=== PATIENT | female | born 1990 ===

== ENCOUNTER 2016-10-05 19:33 | Emergency (ER) | payer OTHER ==
[2016-10-05 20:31] VITALS: BP 81/59
[2016-10-05] MEDS ORDERED: Ondansetron ODT TAB* 4 MG PO ONE (20:51)
--- NOTE | 2016-10-05 20:54 | UC ---
Abdominal Pain Female HPI - HPI Summary HPI Summary: 26 year old female complaining of feeling nauseated and vomiting which began at 0500 hours. Patient had watery to loose stools this morning which has since resolved, states, "I have vomited so many times, I can't even count." Patient denies abdominal pain. - History of Current Complaint Chief Complaint: UCGI Stated Complaint: VOMITING,DIARRHEA,FEVER Time Seen by Provider: 10/05/16 20:42 Hx Obtained From: Patient Hx Last Menstrual Period: 10/04/16 ?: No Onset/Duration: Sudden Onset Aggravating Factor(s): Food Associated Signs and Symptoms: Positive: Diaphoresis, Decreased Appetite, Nausea , Vomiting, Diarrhea. Negative: Fever, Chest Pain, Constipation, Blood in Stool , Urinary Symptoms - Risk Factors Ectopic Risk Factor: Negative Ovarian Torsion Risk Factor: Negative Allergies/Adverse Reactions: Allergies Allergy/AdvReac Type Severity Reaction Status Date / Time No Known Allergies Allergy Verified 10/05/16 20:22 Home Medications: Home Medications Bismuth Subsalicylate [Pepto Bismol] 1 tab PRN 10/05/16 [History] PMH/Surg Hx/FS Hx/Imm Hx Previously Healthy: Yes Endocrine History Of: Denies: Diabetes, Thyroid Disease, Hyperthyroidism Respiratory History Of: Denies: Asthma, Bronchitis GI/ History Of: Denies: Gastroesophageal Reflux, Ulcer, Gall Bladder Disease Neurological History Of: Denies: TIA, CVA Psychological History Of: Denies: Anxiety, Depression - Surgical History Surgical History: Yes Surgery Procedure, Year, and Place: Appendectomy - Family History Known Family History: Positive: Other - Mother-Asthma - Social History Occupation: Employed Full-time - [employer], Student Alcohol Use: None Substance Use Type: None Smoking Status (MU): Never Smoked Tobacco Have You Smoked in the Last Year: No Review of Systems Constitutional: Negative Skin: Negative Eyes: Negative ENT: Negative Respiratory: Negative Cardiovascular: Negative Gastrointestinal: Vomiting, Diarrhea - Loose stools which has since resolved Genitourinary: Negative Motor: Negative Neurovascular: Negative Musculoskeletal: Negative Neurological: Negative Psychological: Negative All Other Systems Reviewed And Are Negative: Yes Physical Exam Triage Information Reviewed: Yes Appearance: No Pain Distress Vital Signs: Initial Vital Signs Temp 99.4 F 10/05/16 20:24 Pulse 66 10/05/16 20:24 Resp 18 10/05/16 20:24 BP 81/59 10/05/16 20:24 Pulse Ox 98 10/05/16 20:24 Vital Signs Reviewed: Yes Eyes: Positive: Conjunctiva Clear ENT Exam: Normal ENT: Positive: Normal ENT inspection, Hearing grossly normal, Pharynx normal, TMs normal, Other: - Dried mucus membranes Neck: Positive: Supple Respiratory: Positive: Chest non-tender, Lungs clear, Normal breath sounds Cardiovascular: Positive: RRR, No Murmur, Pulses Normal Abdomen Description: Positive: Nontender, No Organomegaly, Soft Bowel Sounds: Positive: Hyperactive Musculoskeletal: Positive: Strength Intact, ROM Intact Neurological: Positive: Alert Psychological Exam: Normal Skin Exam: Normal Abd Pain Female Course/Dx - Differential Dx/Diagnosis Provider Diagnoses: Gastroenteritis Discharge - Discharge Plan Condition: Stable Disposition: HOME Patient Education Materials: Gastroenteritis (ED) Referrals: Ashely Snow NP [Primary Care Provider] - If Needed Additional Instructions: Follow up for any red flag symptoms as discussed.
== END 2016-10-05 21:33 | disposition home or self-care (01) ==
LOC: UCEAST 19:33
DX: K52.9 Noninfective gastroenteritis and colitis, unspecified (principal)
CPT/HCPCS: 99202; A9270-GY; G0463